=== PATIENT | female | born 2000 | race Caucasian/White ===

== ENCOUNTER 2020-07-03 11:06 | Emergency (ER) | payer BC, OTHER ==
[2020-07-03 11:40] VITALS: BP 97/62
--- NOTE | 2020-07-03 12:32 | ED Physician Documentation ---
PD HPI ALTERED MENTAL STATUS - Stated complaint Stated Complaint: SEIZURE - Chief complaint Chief Complaint: Neuro - History obtained from History obtained from: Patient - Additional information Additional information: 20-year-old woman went to the office today for menstrual related complaints. She was having her blood drawn and had a syncopal episode with myoclonic jerking. There was no postictal period. She feels fine now. She has gotten faint but not passed out with previous blood draws. They noted that her heart rate during the episode was in the high 30s. Unfortunately the blood was not actually drawn. Review of Systems Ten Systems: 10 systems reviewed and negative Constitutional: reports: Fatigue. denies: Fever, Chills Respiratory: denies: Dyspnea, Cough PD PAST MEDICAL HISTORY - Past Medical History Past Medical History: No - Past Surgical History Past Surgical History: No - Present Medications Home Medications: Ambulatory Orders Medication Instructions Recorded Confirmed Cephalexin [Keflex] 500 mg PO QID 10 Days capsule 03/11/15 - Allergies Allergies/Adverse Reactions: Allergies Allergy/AdvReac Type Severity Reaction Status Date / Time Penicillins Allergy Unknown Verified 07/03/20 11:30 - Social History Does the pt smoke?: No Smoking Status: Never smoker Does the pt drink ETOH?: No Does the pt have substance abuse?: No - Immunizations Immunizations are current?: Yes - POLST Patient has POLST: No PD ED PE NORMAL - Vitals Vital signs reviewed: Yes - General General: Alert and oriented X 3, No acute distress - Cardiac Cardiac: RRR, No murmur - Respiratory Respiratory: No respiratory distress, Clear bilaterally - Abdomen Abdomen: Non tender - Neuro Neuro: Alert and oriented X 3, Normal speech - Psych Psych: Normal mood, Normal affect Results - Vitals Vitals: Vital Signs - 24 hr 07/03/20 07/03/20 11:30 12:15 Temperature 36.3 C L 36.5 C Heart Rate 54 L 54 L Respiratory 16 16 Rate Blood Pressure 97/62 97/62 O2 Saturation 100 100 Oxygen O2 Source Room air - EKG (time done) 1240 Rate: Rate (enter#) (46) Rhythm: NSR [place]: Normal Intervals: Normal NM QRS: Normal Ischemia: Normal ST segments Computer interpretation: Agree with computer PD MEDICAL DECISION MAKING - ED course ED course: 20yo F with vasovagal syncope while having her blood drawn at the doctor's office. There is no description consistent with seizure activity, simply myoclonic jerking. We will order the labs that were to be done at the doctor's office and perform an EKG. Departure - Departure Disposition: 01 Home, Self Care Clinical Impression: Vasovagal syncope Condition: Good Record reviewed to determine appropriate education?: Yes Instructions: ED Syncope Vasovagal Comments: We did order the lab testing that was to be done at the doctor's office, specifically: CBC with differential, comprehensive metabolic panel, follicle-stimulating hormone, luteinizing hormone, prolactin, and thyroid-stimulating hormone. Please follow-up with your physician for results. Return for new or worsening symptoms. In the future when having blood draws or medical procedures done be sure to be laying flat.
[2020-07-03 12:56] LABS: BASOPHILS # (AUTO) 0.1 10^3/uL (0.0-0.1); BASOPHILS % (AUTO) 1.1 %; EOSINOPHILS # (AUTO) 0.1 10^3/uL (0.0-0.7); EOSINOPHILS % (AUTO) 0.9 %; HGB - HEMOGLOBIN 13.9 g/dL (12.0-16.0); LYMPHOCYTES # (AUTO) 1.5 10^3/uL (1.5-3.5); LYMPHOCYTES % (AUTO) 23.4 %; MEAN CORPUSCULAR HEMOGLOBIN 31.7 pg (27.0-31.0); MEAN CORPUSCULAR HGB CONC 33.3 g/dL (32.0-36.0); MEAN CORPUSCULAR VOLUME 95.2 fL (81.0-99.0); MEAN PLATELET VOLUME 10.6 fL (7.9-10.8); MONOCYTES # (AUTO) 0.5 10^3/uL (0.0-1.0); MONOCYTES % (AUTO) 8.4 %; NEUTROPHILS # (AUTO) 4.2 10^3/uL (1.5-6.6); PLT - PLATELET COUNT 215 10^3/uL (130-450); RED BLOOD COUNT 4.39 10^6/uL (4.20-5.40); RED CELL DISTRIBUTION WIDTH 13.2 % (12.0-15.0); WHITE BLOOD COUNT 6.3 x10^3/uL (4.8-10.8)
[2020-07-03 13:09] LABS: ALBUMIN 4.8 g/dL (3.2-5.5); ALBUMIN/GLOBULIN RATIO 1.8 (1.0-2.2); BILIRUBIN,TOTAL 0.7 mg/dL (0.2-1.0); CALCIUM 10.1 mg/dL (8.5-10.3); CREATININE 0.7 mg/dL (0.4-1.0); TOTAL PROTEIN 7.4 g/dL (6.7-8.2)
[2020-07-03 13:28] LABS: THYROID STIMULATING HORMONE 2.02 uIU/mL (0.34-5.60)
[2020-07-03 13:34] LABS: PROLACTIN 9.55 ng/mL
[2020-07-03 13:56] LABS: FOLLICLE STIMULATING HORMONE 6.81 mIU/mL
[2020-07-03 13:57] LABS: LUTEINIZING HORMONE 1.32 mIU/mL
== END 2020-07-03 13:12 | disposition home or self-care (01) ==
LOC: ED 11:06
DX: R55 Syncope and collapse (principal)
CPT/HCPCS: 36415; 80053; 82306; 82607; 83001; 83002; 84146; 84443; 85025; 93005; 99283

== ENCOUNTER 2022-03-08 12:54 | Outpatient (CLI) | payer OTHER ==
[2022-03-08 13:17] LABS: BASOPHILS # (AUTO) 0.1 10^3/uL (0.0-0.1); EOSINOPHILS # (AUTO) 0.1 10^3/uL (0.0-0.7); EOSINOPHILS % (AUTO) 1.9 %; HCT - HEMATOCRIT 41.3 % (37.0-47.0); HGB - HEMOGLOBIN 13.5 g/dL (12.0-16.0); LYMPHOCYTES # (AUTO) 2.1 10^3/uL (1.5-3.5); MEAN CORPUSCULAR HEMOGLOBIN 30.6 pg (27.0-31.0); MEAN CORPUSCULAR HGB CONC 32.7 g/dL (32.0-36.0); MEAN CORPUSCULAR VOLUME 93.7 fL (81.0-99.0); MEAN PLATELET VOLUME 10.7 fL (7.9-10.8); MONOCYTES # (AUTO) 0.5 10^3/uL (0.0-1.0); NEUTROPHILS # (AUTO) 3.1 10^3/uL (1.5-6.6); NEUTROPHILS % (AUTO) 52.9 %; PLT - PLATELET COUNT 215 10^3/uL (130-450); RED BLOOD COUNT 4.41 10^6/uL (4.20-5.40); RED CELL DISTRIBUTION WIDTH 13.2 % (12.0-15.0); WHITE BLOOD COUNT 5.9 x10^3/uL (4.8-10.8)
[2022-03-08 13:40] LABS: % IRON SATURATION 17 % (20-50); ALBUMIN 5.2 g/dL (3.2-5.5); ALBUMIN/GLOBULIN RATIO 2.4 (1.0-2.2); ALKALINE PHOSPHATASE 65 IU/L (42-121); ALT ALANINE AMINOTRANSFERASE 27 IU/L (10-60); AST ASPARTATE AMINOTRANSFERASE 84 IU/L (10-42); BILIRUBIN,TOTAL 0.6 mg/dL (0.2-1.0); BUN - BLOOD UREA NITROGEN 11 mg/dL (6-20); CARBON DIOXIDE - CO2 27 mmol/L (21-32); CHLORIDE 102 mmol/L (101-111); CHOL/HDL RATIO 1.8 (<4.4); CHOLESTEROL 200 mg/dL; CREATININE 0.5 mg/dL (0.4-1.0); GFR - MDRD 154 (>89); HDL CHOLESTEROL 113 mg/dL; IRON 59 ug/dL (28-170); LDL CHOLESTEROL,CALCULATED 70 mg/dL; LDL/HDL RATIO 0.6 (<4.4); POTASSIUM 3.7 mmol/L (3.5-5.0); SODIUM 139 mmol/L (135-145); TOTAL IRON BINDING CAPACITY 344 ug/dL (250-450); TOTAL PROTEIN 7.4 g/dL (6.7-8.2); TRANSFERRIN 246 mg/dL (192-382); TRIGLYCERIDES 86 mg/dL; VLDL CHOLESTEROL 17 mg/dL
[2022-03-08 14:15] LABS: FOLLICLE STIMULATING HORMONE 7.71 mIU/mL
[2022-03-08 14:16] LABS: LUTEINIZING HORMONE 3.22 mIU/mL
[2022-03-08 14:28] LABS: GLUCOSE 56 mg/dL (70-100)
[2022-03-09 05:10] LABS: ESTRADIOL 50.2 pg/mL (.); PROGESTERONE 0.3 ng/mL (.)
== END 2022-03-08 12:55 | disposition home or self-care (01) ==
LOC: LAB 12:54
DX: N92.5 Other specified irregular menstruation (principal); R79.0 Abnormal level of blood mineral; R53.83 Other fatigue; R74.01 Elevation of levels of liver transaminase levels
CPT/HCPCS: 36415; 80053; 80061; 82306; 82607; 82627; 82670; 83001; 83002; 83540; 83721; 84144; 84403; 84466; 85025

== ENCOUNTER 2023-08-05 13:52 | Outpatient (CLI) | payer OTHER ==
--- NOTE | 2023-08-06 12:13 | Ultrasound Report ---
LIMITED ULTRASOUND OF LEFT BREAST: 08/05/2023 CLINICAL: Palpable left breast lump. No prior exams were available for comparison. Ultrasound of the left breast 11-12 o'clock region was performed. Castro scale images of the real-michael e examination were reviewed. No significant abnormalities were seen sonographically in the left breast. Specifically, no abnormal ity to correspond to the patient's palpable area. There is normal, very dense fibroglandular tissue. IMPRESSION: NEGATIVE There is no sonographic correlate to the patient's palpable abnormality and no evidence of malignancy . Clinical follow up is recommended for symptoms as needed. Screening mammography beginning at age 40 is recommended. Findings and recommendations were conveyed to the patient at time of exam. This exam was interpreted at Station ID: [id number]. Electronically Signed By: Cynthia lorenzana/:08/05/2023 14:37:21 letter sent: No_Letter Ultrasound BI-RADS: 1 Negative BI-RADS CATEGORY: (1) - 1 Unspecified - other recall n/a LATERALITY: (B)
== END 2023-08-05 13:53 | disposition home or self-care (01) ==
LOC: DI 13:52
PROVIDERS: ATTEND Physician Assistant Medical
DX: N63.25 Unspecified lump in the left breast, overlapping quadrants (principal)

== ENCOUNTER 2024-01-06 11:48 | Outpatient (CLI) | payer OTHER ==
[2024-01-06 15:06] LABS: BASOPHILS # (AUTO) 0.1 10^3/uL (0.0-0.1); EOSINOPHILS # (AUTO) 0.2 10^3/uL (0.0-0.7); HCT - HEMATOCRIT 41.2 % (37.0-47.0); HGB - HEMOGLOBIN 13.2 g/dL (12.0-16.0); LYMPHOCYTES % (AUTO) 28.2 %; MEAN CORPUSCULAR HEMOGLOBIN 29.8 pg (27.0-31.0); MEAN PLATELET VOLUME 11.3 fL (7.9-10.8); MONOCYTES # (AUTO) 0.8 10^3/uL (0.0-1.0); MONOCYTES % (AUTO) 11.3 %; NEUTROPHILS % (AUTO) 56.4 %; PLT - PLATELET COUNT 262 10^3/uL (130-450); RED BLOOD COUNT 4.43 10^6/uL (4.20-5.40); RED CELL DISTRIBUTION WIDTH 14.6 % (12.0-15.0); WHITE BLOOD COUNT 7.1 x10^3/uL (4.8-10.8)
[2024-01-06 16:06] LABS: THYROID STIMULATING HORMONE 1.78 uIU/mL (0.34-5.60)
[2024-01-06 16:46] LABS: ALBUMIN 4.5 g/dL (3.2-5.5); ALBUMIN/GLOBULIN RATIO 1.6 (1.0-2.2); ALKALINE PHOSPHATASE 70 IU/L (42-121); ALT ALANINE AMINOTRANSFERASE 25 IU/L (10-60); AST ASPARTATE AMINOTRANSFERASE 65 IU/L (10-42); BILIRUBIN,TOTAL 0.4 mg/dL (0.2-1.0); BUN - BLOOD UREA NITROGEN 20 mg/dL (6-20); CALCIUM 9.9 mg/dL (8.5-10.3); CARBON DIOXIDE - CO2 25 mmol/L (21-32); CHLORIDE 104 mmol/L (101-111); CHOL/HDL RATIO 1.4 (<4.4); CHOLESTEROL 165 mg/dL; CREATININE 0.7 mg/dL (0.6-1.3); GFR - MDRD 103 (>89); GLUCOSE 83 mg/dL (74-104); HDL CHOLESTEROL 122 mg/dL; LDL CHOLESTEROL,CALCULATED 27 mg/dL; LDL/HDL RATIO 0.2 (<4.4); POTASSIUM 3.7 mmol/L (3.5-4.5); SODIUM 137 mmol/L (135-145); TOTAL PROTEIN 7.3 g/dL (6.4-8.9); TRIGLYCERIDES 80 mg/dL (48-352); VLDL CHOLESTEROL 16 mg/dL
[2024-01-06 21:04] LABS: ESTIMATED AVERAGE GLUCOSE 94 mg/dL (70-100); HEMOGLOBIN A1c% 4.9 % (4.27-6.07)
== END 2024-01-06 11:49 | disposition home or self-care (01) ==
LOC: LAB.S 11:48
PROVIDERS: ATTEND Physician Assistant Medical
DX: Z13.9 Encounter for screening, unspecified (principal)
CPT/HCPCS: 36415; 80053; 80061; 82306; 83036; 83721; 84443; 85025; 86850; 86900; 86901